=== PATIENT | female | born 1950 | race Caucasian/White ===

== ENCOUNTER 2019-03-11 07:18 | Observation (INO) | payer MEDICARE ==
[2019-03-06 13:57] LABS: BASOPHILS % 0.4 % (0.0-1.0); EOSINOPHILS # (AUTO) 0.2 (0.0-0.4); EOSINOPHILS % 1.8 % (0.0-6.0); HEMATOCRIT 42.1 % (34.2-44.1); HEMOGLOBIN 14.1 g/dL (12.0-16.0); LYMPHOCYTES # (AUTO) 2.4 (1.0-3.2); LYMPHOCYTES % 26.5 % (18.0-39.1); MEAN CORPUSCULAR HEMOGLOBIN 32.6 pg (28-32); MEAN CORPUSCULAR HGB CONC 33.5 g/dL (31-35); MEAN CORPUSCULAR VOLUME 97.2 fL (81-99); MONOCYTES # (AUTO) 0.7 (0.2-0.8); MONOCYTES % 7.3 % (4.4-11.3); NEUTROPHILS # (AUTO) 5.6 (2.1-6.9); NEUTROPHILS % 63.6 % (38.7-80.0); PLATELET COUNT 227 x10e3/uL (140-360); RED BLOOD COUNT 4.33 x10e6/uL (3.6-5.1); RED CELL DISTRIBUTION WIDTH 13.8 % (11.7-14.4)
[2019-03-06 14:12] LABS: ANION GAP 12.8 mmol/L (8-16); BLOOD UREA NITROGEN 13 mg/dL (7-26); BUN/CREATININE RATIO 19 (6-25); CALCIUM 9.9 mg/dL (8.4-10.2); CARBON DIOXIDE 25 mmol/L (22-29); CHLORIDE 102 mmol/L (98-107); EST GLOMERULAR FILTRATION RATE > 60 ML/MIN (60-); GLUCOSE 96 mg/dL (74-118); POTASSIUM 3.8 mmol/L (3.5-5.1); SODIUM 136 mmol/L (136-145)
--- NOTE | 2019-03-06 14:46 | Diagnostic Imaging Report ---
EXAM: CHEST 2 VIEWS, PA and lateral DATE: 03/06/2019 Time stamp on exam: 1:53 PM INDICATION: Preoperative for gynecologic surgery COMPARISON: None FINDINGS: LINES/TUBES: None LUNGS: No consolidations or edema. PLEURA: No effusions or pneumothorax. HEART AND MEDIASTINUM: Normal size and contour. There is tracheal deviation to the left likely from an enlarged right thyroid gland or mass. Correlation with clinical exam is suggested. Aortic vascular calcification is noted. BONES AND SOFT TISSUES: No acute findings. IMPRESSION: 1. No acute thoracic abnormality. 2. Tracheal deviation to the left suggest a thyroid mass or enlargement. Signed by: Dr. Yovani Adam DO on 03/06/2019 2:42 PM
[~2019-03-11] VITALS: Ht 170.2 cm; Wt 82.6 kg
[~2019-03-11 07:18] MED LIST: AMLODIPINE BESY10 MG PO; CARVEDILOL25 MG PO; LOVASTATIN20 MG PO; MELOXICAM7.5 MG PO; TEMAZEPAM15 MG PO; ULTRAM50 MG PO
--- OUTSIDE RECORDS SUMMARY | 2019-03-11 07:20 | XMS REPORT | Clinical Summary ---
Author Author [facility] Organization [facility] Address Unknown Phone Unavailable Care Team Providers Care Grades 9 Through 12 Teacher Name Role Phone Yancy Rockwell MD PCP Allergies No Known Allergies Medications End Date Status Medication Sig Dispensed Refills Start Date Active cephalexin (KEFLEX) 500 0 MG capsule 6 Active ESTRACE 0.01 % (0.1 0 mg/gram) vaginal cream 6 Active eszopiclone (LUNESTA) 3 0 mg tablet 6 Active HYDROcodone-acetaminophen 0 (NORCO) 7.5-325 mg per 6 tablet Active BYSTOLIC 10 mg tablet 0 6 Status Hospital, Clinic, or Ordered Dose Route Frequency Start End Date Other Facility Date Administered Medication Active sodium hyaluronate 10 mg IAtc once 06/23/20 (viscosup) (HYALGAN) 16 syringe 10 mgIndications: Primary osteoarthritis of left knee Active Problems Problem Noted Date Primary osteoarthritis of left knee 05/19/2016 Social History Date Tobacco Use Types Packs/Day Years Used Never Smoker Sex Assigned at Date Recorded Not on file Industry Job Start Date Occupation Not on file Not on file Not on file Travel End Travel History Travel Start No recent travel history available. Last Filed Vital Signs Not on file Plan of Treatment Health Maintenance Due Date Last Done Comments BREAST CANCER SCREENING 01/04/1998 COLONOSCOPY SCREENING 01/04/1998 SHINGLES VACCINES (#1) 01/04/1998 65+ PNEUMOCOCCAL VACCINE 01/04/2013 (1 of 2 - PCV13) INFLUENZA VACCINE 04/24/2019 Results Not on fileafter 03/10/2018 Insurance Type Payer Benefit Subscriber ID Effective Phone Address Plan / Dates Group PPO AETNA AETNA PPO xxxxxxxxxx 2012-P OPEN resent CHOICE Medicare MEDICARE MEDICARE xxxxxxxxxx 2012-P SOLO, PART A AND resent [place] B Advance Directives Patient has advance care planning documents on file. For more information, darshana e contact: Solo Moreno [address] [place] [address]
--- OUTSIDE RECORDS SUMMARY | 2019-03-11 07:20 | XMS REPORT ---
Author Author [facility] Address Unknown Phone Unavailable Care Team Providers Care Pulley Man Name Role Phone Dre NIELSEN Unavailable Unavailable Problems This patient has no known problems. Allergies, Adverse Reactions, Alerts This patient has no known allergies or adverse reactions. Medications This patient has no known medications. Results Test Description Test Time Test Comments Text Results Atomic Results Result Comments CHEST 2 VIEWS 2019-03-06 14:39:00 [place] [address] Patient Name: ANDREW MALHOTRA MR #: [id number] : 1950 Age/Sex: 69/F Req #: [id number] Adm Physician: Ordered by: SHYAM NIELSEN MD Report #: [id number] Location: OR Room/Bed: Procedure: [id number] DX/CHEST 2 VIEWS Exam Date: 03/06/19 Exam Time: 1353 REPORT STATUS: Signed EXAM: CHEST 2 VIEWS, PA and lateral DATE: 03/06/2019 Time s tamp on exam: 1:53 PM INDICATION: Preoperative for gynecologic surgery COMPARISON: None FINDINGS: LINES/TUBES: None LUNGS: No consolidations or edema. PLEURA: No effusions or pneumothorax. HEART AND MEDIASTINUM: Normal size and contour. There is tracheal deviation to the left likely from an enlarged right thyroid gland or mass. Correlation with clinical exam is suggested. Aortic vascular calcification is noted. BONES AND SOFT TISSUES: No acute findings. IMPRESSION: 1. No acute thoracic abnormality. 2. Tracheal deviation to the left suggest a thyroid mass or enlargement. Signed by: Dr. Jeff Adam DO on 03/06/2019 2:42 PM Dictated By: JEFF ADAM DO [id number] Transcribed By: RYAN on 03/06/19 1442 COPY TO: SHYAM NIELSEN MD SCR MAMM BILATERAL ANNMARIE CAD DIGITAL 2018-11-05 10:10:52 - SCR MAMM BILATERAL ANNMARIE CAD DIGITALBILATERAL DIGITAL SCREENING MAMMOGRAM 3D/2D WITH CAD: 11/04/2018CLINICAL: Asymptomatic. Digital breast tomosynthesis was performed in addition to routine CC and MLO views. Current mammographic images were evaluated by either a Qardio M-Vu or an Melior Discovery version 7.2 computer aided detection system. Comparison is made to exams dated 11/01/2017 mammogram, 10/24/2016 mammogram - [facility]-, and 05/23/2012 mammogram - [facility]. There are scattered fibroglandular tissues in both breasts. There are benign calcifications in both breasts. No suspicious mass, architectural distortion, malignant type calcification, or lymph node abnormality detected. Breast architecture is stable compared to prior exams.IMPRESSION: BENIGNThere is no mammographic evidence of malignancy. Resume annual screening mammography in one year. Marlon Gil M.D. ss/penrad:11/05/2018 10:10:52 Patient Registration Supervisor: Shweta SAUCEDA, [facility]-FWletter sent: BIRADS 1-2 Normal Mammogram BI-RADS: 2 Benign
[2019-03-11] MEDS ORDERED: CEFAZOLIN SOD 2 GM/D5W 50ML 50 ML IV ONE (07:43)
[2019-03-11] MEDS ORDERED: ESTROGENS CONJUGATED VAGINAL CR 45 GM TUBE PV ONE (10:27)
[2019-03-11] MEDS ORDERED: BUPIVACAINE 0.25%/EPI 30ML SDV INJ ONE (10:27)
[2019-03-11] MEDS ORDERED: ACETAMINOPHEN 1000 MG/100 ML 100 ML IV ONE (10:34)
[2019-03-11] MEDS ORDERED: HYDROCODONE/APAP 5MG-325MG TAB PO PRN (10:45)
[2019-03-11] MEDS ORDERED: SIMETHICONE 80 MG CHEW PO PRN (10:45)
[2019-03-11] MEDS ORDERED: DIPHENHYDRAMINE HCL 25 MG CAP PO PRN (10:45)
[2019-03-11] MEDS ORDERED: HYDROMORPHONE 1MG/1ML INJ IV PRN (10:45)
[2019-03-11] MEDS ORDERED: HYDROCODONE/APAP 10MG-325MG TAB PO PRN (10:45)
[2019-03-11] MEDS ORDERED: ONDANSETRON HCL INJ 2MG/ML 2ML 2 MG/ML VIAL IV PRN (10:45)
[2019-03-11] MEDS ORDERED: NEOSTIGMINE 5 MG/5ML SYR ONE (11:33)
[2019-03-11] MEDS ORDERED: SEVOFLURANE INHAL SOLN 250 ML PEN BTL ONE (11:33)
[2019-03-11] MEDS ORDERED: LABETALOL HCL 5 MG/ML 20ML VIAL ONE (11:33)
[2019-03-11] MEDS ORDERED: PROPOFOL IV EMULSION 10 MG/ML 20 ML VIAL ONE (11:33)
[2019-03-11] MEDS ORDERED: ONDANSETRON HCL INJ 2MG/ML 2ML 2 MG/ML VIAL ONE (11:33)
[2019-03-11] MEDS ORDERED: GLYCOPYRROLATE INJ 1MG/ 5 ML SYR ONE (11:33)
[2019-03-11] MEDS ORDERED: DEXAMETHASONE SOD PHOS INJ 4 MG/ML VIAL ONE (11:33)
[2019-03-11] MEDS ORDERED: EPHEDRINE SULFATE INJ 50 MG/10 ML SYR ONE (11:33)
[2019-03-11] MEDS ORDERED: LIDOCAINE HCL 2% LOCAL INJ 5 ML SDV VIAL INJ ONE (11:33)
[2019-03-11] MEDS ORDERED: ROCURONIUM BROMIDE 10 MG/ML 5ML VIAL ONE (11:33)
[2019-03-11] MEDS ORDERED: LIDOCAINE HCL 2% JELLY 5 ML TUBE ONE (11:33)
[2019-03-11] MEDS ORDERED: HYDROMORPHONE 2MG/ML 2 MG/ML ML ONE (13:08)
[2019-03-11] MEDS: KETOROLAC TROMETHAMINE 30 MG/ML VIAL IV SCH ×3 (13:30→23:36)
--- OUTSIDE RECORDS SUMMARY | 2019-03-11 13:53 | XMS REPORT | Clinical Summary ---
Author Author [facility] Organization [facility] Address Unknown Phone Unavailable Care Team Providers Care Ophthalmology Technician Name Role Phone Yancy Rockwell MD PCP [...] more information, darshana e contact: Solo Moreno [address] [place] [address]
[2019-03-11] MEDS ORDERED: HYDROMORPHONE 2MG/ML 2 MG/ML ML IV PRN ×2 (15:00)
--- NOTE | 2019-03-11 15:12 | NUR ---
Recvd patient from PACU, AAOx3, Vaginal packing intact, no bleeding , morse intact, not in any distress, call light in reach, bed alarm on, daughter at bed side, keep monitoring
[2019-03-11 15:13] VITALS: BP 144/69
[2019-03-11 15:30] VITALS: BP 144/69
[2019-03-11] MEDS: CARVEDILOL 12.5 MG TAB PO SCH (17:15)
[2019-03-11] MEDS: DOCUSATE SODIUM 100 MG CAP PO SCH (17:15)
[2019-03-11] MEDS ORDERED: FENTANYL CITRATE/PF 100MCG/2 ML INJ ONE (19:14)
[2019-03-11] MEDS ORDERED: MIDAZOLAM HCL 2 MG/2 ML VIAL ONE (19:14)
[2019-03-11 20:00] VITALS: BP 141/89
[2019-03-11] MEDS ORDERED: AMLODIPINE BESYLATE 10 MG TAB PO SCH (21:00)
[2019-03-11] MEDS ORDERED: TEMAZEPAM 15 MG CAP PO PRN (21:00)
[2019-03-11] MEDS ORDERED: SIMVASTATIN 20 MG TAB PO SCH (21:00)
[2019-03-11 23:37] VITALS: BP 108/57
[2019-03-12] MEDS: LACTATED RINGER'S 1,000 ML IV SCH ×3 (00:11→10:12)
[2019-03-12 04:00] VITALS: BP 137/65
[2019-03-12 06:03] LABS: BASOPHILS % 0.2 % (0.0-1.0); EOSINOPHILS % 0.2 % (0.0-6.0); HEMATOCRIT 36.3 % (34.2-44.1); LYMPHOCYTES # (AUTO) 1.3 (1.0-3.2); LYMPHOCYTES % 11.1 % (18.0-39.1); MEAN CORPUSCULAR HEMOGLOBIN 32.7 pg (28-32); MEAN CORPUSCULAR HGB CONC 33.1 g/dL (31-35); MEAN CORPUSCULAR VOLUME 98.9 fL (81-99); MONOCYTES # (AUTO) 0.7 (0.2-0.8); MONOCYTES % 6.3 % (4.4-11.3); NEUTROPHILS # (AUTO) 9.6 (2.1-6.9); NEUTROPHILS % 81.5 % (38.7-80.0); PLATELET COUNT 193 x10e3/uL (140-360); RED BLOOD COUNT 3.67 x10e6/uL (3.6-5.1); RED CELL DISTRIBUTION WIDTH 13.5 % (11.7-14.4)
[2019-03-12 06:23] LABS: ANION GAP 12.3 mmol/L (8-16); BLOOD UREA NITROGEN 14 mg/dL (7-26); BUN/CREATININE RATIO 18 (6-25); CALCIUM 9.2 mg/dL (8.4-10.2); CARBON DIOXIDE 27 mmol/L (22-29); CHLORIDE 105 mmol/L (98-107); CREATININE, SERUM 0.76 mg/dL (0.57-1.11); EST GLOMERULAR FILTRATION RATE > 60 ML/MIN (60-); GLUCOSE 102 mg/dL (74-118); POTASSIUM 4.3 mmol/L (3.5-5.1); SODIUM 140 mmol/L (136-145)
--- NOTE | 2019-03-12 06:52 | NUR ---
Maurer and vaginal packing removed. Patient voided 100CC, post void residual 172ml. Will continue to monitor.
--- NOTE | 2019-03-12 07:15 | NUR ---
Report and walking rounds complete. Patient in bed with daughter at bedside, no issues or concerns. Call light within reach.
[2019-03-12] MEDS: KETOROLAC TROMETHAMINE 30 MG/ML VIAL IV SCH ×2 (07:20→11:57)
[2019-03-12 08:19] VITALS: BP 153/65
--- NOTE | 2019-03-12 08:30 | NUR ---
Patient voided 375cc and 178ml post void residual. Dr. Reid at the nurses' station and aware.
[2019-03-12] MEDS: DOCUSATE SODIUM 100 MG CAP PO SCH (08:58)
[2019-03-12] MEDS: CARVEDILOL 12.5 MG TAB PO SCH (08:58)
[2019-03-12] MEDS ORDERED: ONDANSETRON HCL 4 MG ORAL DISINTEGRATING TAB PO PRN (10:00)
--- NOTE | 2019-03-12 10:22 | NUR ---
Patient voided 510cc and her post void residual 198cc
--- NOTE | 2019-03-12 11:34 | NUR ---
Patient voided 550cc and post void residual 33cc
[2019-03-12 12:33] VITALS: BP 139/65
[2019-03-12] MEDS ORDERED: COLACE100 MG PO (13:57)
[2019-03-12] MEDS ORDERED: MELOXICAM7.5 MG PO (13:57)
[2019-03-12] MEDS ORDERED: Hydrocodone/Apap 5MG-325MG PO (13:57)
--- NOTE | 2019-03-12 14:00 | NUR ---
Dr. Reid making round. Patient will be able to discharge home today. IV removed so patient can bathe per request.
--- NOTE | 2019-03-12 15:15 | NUR ---
Patient discharged home with written instructions and prescriptions. She verbalized understanding. Patient wheeled to private vehicle with daughter to drive home.
--- NOTE | 2019-04-15 14:01 | Operative Report ---
DATE OF PROCEDURE: 03/11/2019 SURGEON: Emily Reid MD [facility] PROVIDER: None. PREOPERATIVE DIAGNOSES: Abnormal uterine bleeding, pelvic organ prolapse and stress urinary incontinence. POSTOPERATIVE DIAGNOSES: Abnormal uterine bleeding, pelvic organ prolapse and stress urinary incontinence. PROCEDURES PERFORMED: Dilatation and curettage, hysteroscopic polypectomy, anterior and posterior colporrhaphy and transobturator mid urethral sling placement and diagnostic cystoscopy. ANESTHESIA: General. ESTIMATED BLOOD LOSS: 50 mL. COMPLICATIONS: None. FINDINGS: The patient had a small anteverted uterus with hysteroscopic findings of endometrial polyps. She also was noted to have a second-degree cystocele and second-degree rectocele with no uterine prolapse noted. SPECIMENS: Include endometrial curettings with fragments of polyps. INDICATIONS: The patient is a 69-year-old female with history of postmenopausal bleeding, pelvic organ prolapse and genuine stress incontinence, desiring definitive surgical management. PROCEDURE NOTE: The risks, benefits, indications, and alternatives of the procedure were discussed with the patient and the consent was obtained. The patient was taken to the operating room where general anesthesia was obtained without difficulty. She was prepped and draped in typical sterile fashion in the dorsal lithotomy position in [facility]. A time-out was then done. The patient's bladder was drained with straight catheter prior to the procedure. A weighted speculum was placed in the vagina and the anterior lip of the cervix was grasped with a single-tooth tenaculum. The cervix was then sequentially dilated using Hegar dilators and the TruClear hysteroscope was advanced to the level of the uterine fundus. The uterine cavity was explored with the above-noted findings. The TruClear device was then used to morcellate and remove the polyps under direct visualization. A sharp curettage was then performed and all curettings were sent for pathology. A survey of the uterine cavity then revealed a normal-appearing and intact cavity. A solution of 0.25% Marcaine with epinephrine was injected just below the vaginal mucosa throughout the area of the cystocele. Several Allis clamps were placed 3 to 4 cm apart of the midline of the anterior vaginal wall. A transverse incision was then made at the junction of the vaginal mucosa and cervix. The edges of the vaginal mucosa were held with hemostats and the Metzenbaum scissors were used to undermine the mucosa from the underlying fascia. The mucosa was then opened with the scissors in the midline within 2 cm of the urethral meatus. As the vagina was opened, edges of the mucosa were grasped with Allis clamps. The fascia was from the vaginal mucosa using both sharp and blunt dissection until the bladder and urethra were from the vaginal mucosa and clearly identified. The anterior repair was then started by placing 0 Vicryl sutures in the pubovesical cervical fascia starting approximately 1.5 cm below the urethral meatus. The remaining fascia was plicated in the midline with multiple interrupted 0 Vicryl sutures until the entire cystocele had been reduced. The edges of the vaginal mucosa were held on tension and the excessive vaginal mucosa was trimmed away using Ruiz scissors. The vaginal mucosa was then sutured in midline with continuous 0 Vicryl. Attention was then turned to the transobturator tape placement. A Maurer catheter was placed to empty the bladder. A solution of 0.25% Marcaine with epinephrine was injected just below the vaginal mucosa custodial between the meatus and the uterovesical junction and on each side of the urethra deep to the endopelvic fascia. A 1 cm incision was made vertically at the level of the mid urethra through the vaginal mucosa. A combination of blunt and sharp dissection was performed until the pubic rami were palpable bilaterally. The connective tissues were dissected bluntly and sharply to allow placement of the Obtryx trocars. A 5 mm incisions were then made with a scalpel in the mid crural line at the level of the clitoris bilaterally. The trocar was then placed through the incision on the patient's left side pierced through the obturator membrane and guided along the posterior aspect of the pubic rami until the trocar was brought out through the vaginal mucosal incision. The TOT sling was placed on the trocar and guided out through the trocar tract. A similar procedure was performed on the contralateral side. The transvaginal tape was then pulled up to a point loosely underlying the urethra that freely admitted the tips of the surgical scissors. The Maurer catheter was then removed and cystoscopy was performed. The bladder and urethra were inspected for perforation and none was noted. The cystoscope was removed and the bladder drained and the Maurer catheter replaced. The plastic sheaths were then removed from the sling and the ends were cut below the skin level at the exit points. The skin punctures were closed with Dermabond and the vaginal mucosa was closed with 2-0 Vicryl running sutures. Attention was then turned to the posterior repair where the apices of the posterior fourchette were grasped with Allis clamps and a solution of 0.25% Marcaine with epinephrine was injected just below the vaginal mucosa throughout the area of the rectocele. A transverse incision was then made with a scalpel at the level of the hymenal ring. An additional Allis clamp was placed in the midline at the top of the rectocele and two hemostats were placed at the edges of the mucosa for retraction. Metzenbaum scissors were then inserted under the posterior vaginal mucosa dissecting the posterior mucosa off the rectovaginal fascia. A midline incision was then made in the mucosa. This process was repeated until the superior apex of the rectocele was reached. Interrupted sutures of 0 Vicryl were placed to reapproximate the superficial transverse perinei muscle and levator ani muscle. The vagina was then closed over this repair using 2-0 Vicryl suture. The bulbocavernosus was reapproximated in the midline with a single interrupted 2-0 Vicryl suture. The perineum was then repaired using 2-0 Vicryl in a subcuticular fashion. Vaginal packing soaked in Premarin cream was placed in the vagina and all instruments were removed. The patient was awakened from general anesthesia and brought to the recovery room in stable condition. All sponge, lap, needle, and instrument counts were correct x2. MD ULISES Ramsey/MODKyle /[id number]
== END 2019-03-12 13:10 | disposition home or self-care (01) ==
LOC: OR 07:18 → PACU V 10:41 → IMCU 14:37
PROVIDERS: ADMIT Obstetrics & Gynecology Obstetrics; ATTEND Obstetrics & Gynecology Obstetrics
DX: N95.0 Postmenopausal bleeding (principal); N39.3 Stress incontinence (female) (male); N81.89 Other female genital prolapse; Z01.810 Encounter for preprocedural cardiovascular examination; Z01.812 Encounter for preprocedural laboratory examination; Z01.811 Encounter for preprocedural respiratory examination; I10 Essential (primary) hypertension; M19.90 Unspecified osteoarthritis, unspecified site; K21.9 Gastro-esophageal reflux disease without esophagitis; N84.0 Polyp of corpus uteri; N81.10 Cystocele, unspecified; N81.6 Rectocele
CPT/HCPCS: 36415 ×2; 57260; 57288; 58558; 71046; 80048 ×2; 85025 ×2; 88302; 88305; C1758; C1781; G0378 ×2; J0131; J0690; J1100; J1170; J1885 ×2; J2001 ×2; J2250; J2405; J2704; J3490 ×2; J7121 ×2; J3010